=== PATIENT | female | born 1980 | race Caucasian/White ===

== ENCOUNTER 2017-10-30 20:36 | Emergency (ER) | payer MEDICARE, MEDICAID, SELFPAY ==
[2017-10-30 20:52] VITALS: BP 135/96; PULSE 109; RESP 16; TEMP 36.3; O2SAT 97; BMI 21.6
[2017-10-30] MEDS: HYDROMORPHONE 2 MG INJ 1 MG SUBCUT (21:52)
[2017-10-30 22:16] VITALS: BP 162/110; PULSE 92; RESP 17; O2SAT 98
[2017-10-30] MEDS: diazePAM 5 MG TABLET PO (22:58)
[2017-10-30 23:00] VITALS: BP 144/104; PULSE 87; RESP 14; O2SAT 98
[2017-10-30 23:06] VITALS: BP 144/101; PULSE 88; RESP 21; O2SAT 99
--- NOTE | 2017-10-31 01:41 | ED_ITS ---
HPI - Extremity Problem General Chief complaint: Extremity Problem,Nontraumatic Stated complaint: PAIN FROM GROIN TO RT KNEE Time Seen by Provider: 10/30/17 21:20 Source: patient Mode of arrival: wheelchair Limitations: no limitations History of Present Illness HPI Narrative: Patient is a 36-year-old female presenting with right leg pain from her hip down to her knee. She says it has been on going for the last number of months. She does have some urinary incontinence ongoing for the last few months as well. She is being followed closely by the [facility] because she is a heart transplant patient. 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 She also has cervical spine stenosis which she is aware of. She was recently at a extrusion press adjuster's appointment and was asking about the MRI results and for some explanation. He was unable to give her an answer to her satisfaction. Today she is having increased pain. She denies having any increased weakness or change in urination habits. She has not had any fever or chills. Her blood pressure has been fluctuating significantly standing worse is sitting she is being worked up with [facility]. Related Data Home Medications Medication Instructions Recorded Confirmed OXYCODONE/ACET 1 tab PO BIDP #0 12/04/11 fentanyl [Duragesic] #0 05/28/16 filgrastim [Neupogen] #0 05/28/16 Previous Rx's Medication Instructions Recorded diazepam [Valium] 5 mg PO Q8HP PRN #10 tab 05/29/16 diazepam [Valium] 5 mg PO Q12HR PRN #10 tab 10/30/17 Allergies Allergy/AdvReac Type Severity Reaction Status Date / Time adhesive tape [ADHESIVE TAPE] Allergy Unknown Verified 10/30/17 21:21 aloe [ALOE] Allergy Unknown Verified 10/30/17 21:21 lisinopril [LISINOPRIL] AdvReac Mild dry cough Verified 10/30/17 21:21 ibuprofen AdvReac Verified 10/30/17 21:21 Review of Systems Review of Systems All systems reviewed & are unremarkable except as noted in HPI and below Constitutional Denies chills, Denies fever(s), Denies lethargy and Denies weakness Cardiovascular Reports as per HPI, Denies dyspnea and Denies dyspnea on exertion Respiratory Denies cough, Denies dyspnea, Denies dyspnea on exertion and Denies wheezing Gastrointestinal Gastrointestinal: Denies abdominal pain, Denies change in bowel habits, Denies diarrhea, Denies nausea and Denies vomiting Musculoskeletal Reports as per HPI Integumentary/Breasts Denies pruritus, Denies erythema, Denies rash and Denies wounds Neurologic Reports as per HPI and Denies weakness Allergic/Immunologic Denies wheezing PFSH Medical History Cardiomyopathy (Acute) Heart transplant recipient (Acute) Surgical History History of third molar tooth extraction Status post laparoscopic supracervical hysterectomy (11/30/08) Status post tonsillectomy and adenoidectomy Social History Smoking Status: Current some day smoker Exam Initial Vital Signs Initial Vital Signs: Vital Signs Temperature 97.4 F L 10/30/17 20:52 Pulse Rate 109 H 10/30/17 20:52 Respiratory Rate 16 10/30/17 20:52 Blood Pressure 135/96 H 10/30/17 20:52 Pulse Oximetry 97 10/30/17 20:52 GENERAL: Chronically ill female awake and alert HEENT: Head atraumatic,EOMI, pupils reactive, face symmetric CARDIOVASCULAR: Regular rate and rhythm without murmurs, rubs or gallops. Scar noted RESPIRATORY: Breath sounds equal bilaterally, no wheezes rales or rhonchi. ABDOMEN: Soft, nontender. Normoactive bowel sounds all 4 quadrants. No guarding or rebound. BACK: No vertebral tenderness no step-off mild right lumbar pain EXTREMITIES: Normal range of motion, no clubbing or edema. Neurovascularly intact right leg may be slightly weaker than the left but does not drift to the gurney she does have pain with movement. Distal pedal pulse intact NEUROLOGICAL: Alert and oriented x4.Normal gait and speech. Cranial nerves II through XII grossly intact. SKIN: Warm, dry, no laceration, no petechiae, no rashes or lesions. Recent skin biopsy sites appear to be healing and not infected Course Orders Ordered: Discontinued Medications Diazepam (Valium) 5 mg PO NOW ONE Stop: 10/30/17 22:48 Last Admin: 10/30/17 22:58 Dose: 5 mg Hydromorphone HCl (Dilaudid) 1 mg SUBCUT NOW ONE Stop: 10/30/17 21:42 Last Admin: 10/30/17 21:52 Dose: 1 mg Vital Signs - 8 hr 10/30/17 20:52 10/30/17 22:16 10/30/17 23:00 Temperature 97.4 F L Pulse Rate 109 H 92 H 87 Respiratory Rate 16 17 14 Blood Pressure 135/96 H Blood Pressure [Left Arm] 162/110 H 144/104 H Pulse Oximetry 97 98 98 10/30/17 23:06 Temperature Pulse Rate 88 Respiratory Rate 21 Blood Pressure 144/101 H Blood Pressure [Left Arm] Pulse Oximetry 99 MDM - Extremity (Nontraumatic) Medical Records Attestation: I reviewed the patient's medical records. MDM Narrative Medical decision making narrative: Patient has no new symptoms. She has had some urinary incontinence ongoing for a number of months she recently had an MRI which does not show any spinal cord impingement she does have an L5 nerve root impingement I think causing her right leg pain. This all seems to be chronic and ongoing. Dilaudid did seem to help. Recommended follow-up with primary physician and/or [facility]. Discharge Plan Departure Patient Disposition: Home Clinical Impression: Neuropathic pain of right lower extremity Discharge Date/Time: 10/30/17 23:16 Interventions: ED Discharge Assessment Last Done: 10/30/17 23:06 Instructions: DI for Peripheral Neuropathy Activity Restrictions/Additional Instructions: *You have been diagnosed with neuropathy of right leg *What to do: Pain is likely from the L5 nerve. Recommend physical therapy. *Continue to take medications as directed Valium every 12 hr if needed for muscle spasm *Follow up with your primary care provider in 2-3 days *Return to ER if you should have weakness, increased urinary incontinence, or any new, worsening or concerning symptoms CONTROLLED SUBSTANCE DISCHARGE (Narcotoic/benzodiazepine/Flexeril/Phenergan) 1. You have been prescribed narcotic medications, it does have acetaminophen/ Tylenol/paracetamol in it so do not take extra Tylenol or Tylenol containing products 2. Please understand that we cannot provide further refills of narcotics, benzodiazepines or controlled substances through the ED and her pain management will need to be through your provider. 3. While on these medications you cannot drive or operate heavy machinery. 4. You cannot sign legal documents or perform any duties such as this. 5. As long as you're taking opiate pain medications he should also be taking a stool softener such as Colace, Dulcolax, MiraLAX or prune juice, to help avoid constipation. Prescriptions: New diazepam [Valium] 5 mg tablet 5 mg PO Q12HR PRN (Reason: muscle spasm) Qty: 10 RF: 0 No Action OXYCODONE/ACET 1 tab PO BIDP Qty: 0 RF: 0 fentanyl [Duragesic] 75 MCG/HR patch 72 hour Qty: 0 RF: 0 filgrastim [Neupogen] 300 MCG/0.5 ML syringe Qty: 0 RF: 0 diazepam [Valium] 5 MG tablet 5 mg PO Q8HP PRNQty: 10 RF: 0 Referrals: Dino Duval MD [Primary Care Provider] -
== END 2017-10-30 23:16 | disposition home or self-care (01) ==
PROVIDERS: Emergency Provider Emergency Medicine; Family Provider Family Medicine; PCP Family Medicine
DX: G57.91 Unspecified mononeuropathy of right lower limb (principal)
CPT/HCPCS: 99282; 99283; J1170

== ENCOUNTER 2017-11-05 13:31 | Emergency (ER) | payer MEDICARE, MEDICAID, SELFPAY ==
[2017-11-05 13:40] VITALS: BP 124/96; PULSE 104; RESP 25; TEMP 36.3; O2SAT 100
[2017-11-05 13:48] VITALS: BP 146/94; PULSE 104; RESP 25; TEMP 36.3; O2SAT 100
--- NOTE | 2017-11-05 13:57 | ED.GENADULT ---
HPI - General Adult General Chief complaint: Extremity Problem,Nontraumatic Stated complaint: Lf shoulder pain/Rt leg pain Time Seen by Provider: 11/05/17 13:36 Source: patient Mode of arrival: ambulatory Limitations: no limitations History of Present Illness HPI narrative: Patient is a 36-year-old female with a significant medical history. She has had a cardiac transplant. Patient is here today for evaluation of left arm and right leg pain. She was seen here in the emergency department a couple days ago for this. She has had an MRI of her lower back which does show degenerative disc disease. She states she has talk with her neurologist about this. She has had studies done recently to evaluate for nerve conduction. She is currently on a fentanyl patch and Percocet. She comes in today because she has had problems with walking at home secondary to the pain. Related Data Home Medications Medication Instructions Recorded Confirmed droxidopa [Northera] 2 cap PO TID 11/05/17 11/05/17 fentanyl 1 patch TOPICAL Q72H 11/05/17 11/05/17 fludrocortisone 2 tab PO DAILY 11/05/17 11/05/17 magnesium oxide-Mg AA chelate 2 tab PO BID 11/05/17 11/05/17 [[id number]] midodrine 2 tab PO TID 11/05/17 11/05/17 omeprazole 1 cap PO DAILY 11/05/17 11/05/17 oxycodone-acetaminophen 1 - 2 tab PO Q4-6H PRN 11/05/17 11/05/17 potassium chloride 1 tab PO DAILY 11/05/17 11/05/17 pravastatin 1 tab PO QPM 11/05/17 11/05/17 sirolimus 3 tab PO DAILY 11/05/17 11/05/17 tacrolimus 2 cap PO Q12H 11/05/17 11/05/17 venlafaxine 3 cap PO DAILY 11/05/17 11/05/17 Previous Rx's Medication Instructions Recorded diazepam [Valium] 5 mg PO Q8HP PRN #10 tab 05/29/16 Allergies Allergy/AdvReac Type Severity Reaction Status Date / Time adhesive tape [ADHESIVE TAPE] Allergy Unknown Verified 10/30/17 21:21 aloe [ALOE] Allergy Unknown Verified 10/30/17 21:21 lisinopril [LISINOPRIL] AdvReac Mild dry cough Verified 10/30/17 21:21 ibuprofen AdvReac Verified 10/30/17 21:21 Review of Systems Constitutional Reports fatigue, Denies fever(s) and Denies headache(s) ENT Ears, Nose, Mouth, and Throat: Denies dizziness and Denies headache(s) Cardiovascular Denies chest pain and Denies dyspnea Respiratory Denies dyspnea Gastrointestinal Gastrointestinal: Denies abdominal pain Genitourinary Denies dysuria Musculoskeletal Reports abnormal gait Comments: Left shoulder right leg pain Integumentary/Breasts Denies lesions and Denies rash Neurologic Reports abnormal gait, Denies dizziness and Denies headache(s) Endocrine Reports fatigue [facility] Medical History Cardiomyopathy (Acute) Heart transplant recipient (Acute) Surgical History History of third molar tooth extraction Status post laparoscopic supracervical hysterectomy (11/30/08) Status post tonsillectomy and adenoidectomy Social History Smoking Status: Current some day smoker Exam Initial Vital Signs Initial Vital Signs: Vital Signs Temperature 97.4 F L 11/05/17 13:40 Pulse Rate 104 H 11/05/17 13:40 Respiratory Rate 25 H 11/05/17 13:40 Blood Pressure 124/96 H 11/05/17 13:40 Pulse Oximetry 100 11/05/17 13:40 Const General: comfortable and No acute distress Orientation: alert, awake and oriented x3 HENMT Head: normal to inspection and normocephalic Resp Effort & Inspection: normal respiratory effort Cardio Rate: regular rate Rhythm: regular rhythm GI Inspection: non-distended Palpation: soft and No tender Skin Lesions: no lesions Rashes: no rashes Neuro General: alert, awake and oriented x3 Extrem Other: Limited range of motion of the right hip secondary to pain. She describes tenderness to palpation along the anterior portion of her right thigh. Patient also with limited range of motion of her left shoulder. With tenderness palpation throughout the left shoulder. No gross deformities. Psych Appearance: grossly normal and well kempt Course Orders Ordered: Discontinued Medications Fentanyl (Duragesic) 25 mcg TOP NOW ONE Stop: 11/05/17 14:20 Last Admin: 11/05/17 14:40 Dose: 25 mcg Oxycodone/Acetaminophen (Percocet 5/325) 2 tab PO NOW ONE Stop: 11/05/17 14:20 Last Admin: 11/05/17 14:40 Dose: 2 tab Vital Signs - 8 hr 11/05/17 13:40 11/05/17 13:48 11/05/17 14:43 Temperature 97.4 F L 97.4 F L Pulse Rate 104 H 104 H Pulse Rate [Bilateral] 81 Respiratory Rate 25 H 25 H Blood Pressure 146/94 H Blood Pressure [Left Arm] 124/96 H Pulse Oximetry 100 100 11/05/17 15:04 Temperature Pulse Rate 95 H Pulse Rate [Bilateral] Respiratory Rate 18 Blood Pressure Blood Pressure [Left Arm] 147/99 H Pulse Oximetry 100 Medical Decision Making MDM Narrative Medical decision making narrative: I reviewed the patient's past medical history. She does have an appointment with her primary doctor later this afternoon. I was able to talk with her primary doctor regarding her symptoms. Had a long discussion with the primary doctor regarding them.. We did feel like further workup here in the emergency department is not warranted. I do not feel like this is a fracture, cauda equina, septic joint or other emergent/surgical issue. Will hold on any radiologic studies for now. I did discuss this with the patient. We did discuss increasing her pain medication. She has been on 75 mcg of fentanyl for some time now. We will increase this to 100 mcg of fentanyl. She does have Percocet at home. I did inform her that she needs to talk with her primary care doctor at this appointment this afternoon about further pain management versus for home physical therapy versus home health. The patient expressed understanding and agreement this. She also expressed agreement not to do any further testing here in the emergency department. She was given return precautions. She expressed agreement with plan. Discharge Plan Departure Patient Disposition: Home Clinical Impression: Leg pain, right, Left shoulder pain Discharge Date/Time: 11/05/17 15:22 Interventions: ED Discharge Assessment Last Done: 11/05/17 15:06 Activity Restrictions/Additional Instructions: I recommend that you keep your appointment with your primary doctor that you have later today. You do need to discuss chronic pain management and also discussed the indications for home physical therapy or other home health needs. You can return to the emergency department for any new symptoms. Prescriptions: No Action diazepam [Valium] 5 MG tablet 5 mg PO Q8HP PRNQty: 10 RF: 0 venlafaxine 75 mg capsule,extended release 24hr 3 cap PO DAILY RF: 0 midodrine 5 mg tablet 2 tab PO TID RF: 0 potassium chloride 20 mEq tablet,ER particles/crystals 1 tab PO DAILY RF: 0 oxycodone-acetaminophen 10-325 mg tablet 1 - 2 tab PO Q4-6H PRN (Reason: pain) RF: 0 omeprazole 20 mg capsule,delayed release(DR/EC) 1 cap PO DAILY RF: 0 pravastatin 20 mg tablet 1 tab PO QPM RF: 0 fentanyl 75 mcg/hr patch 72 hour 1 patch Topical Q72H RF: 0 fludrocortisone 0.1 mg tablet 2 tab PO DAILY RF: 0 tacrolimus 1 mg capsule 2 cap PO Q12H RF: 0 magnesium oxide-Mg AA chelate [[id number]-[id number]] 133 mg Tablet 2 tab PO BID RF: 0 sirolimus 0.5 mg tablet 3 tab PO DAILY RF: 0 droxidopa [Northera] 300 mg capsule 2 cap PO TID RF: 0
[2017-11-05] MEDS: OXYCODONE/ACETAMINOPHEN 5/325 TABLET 2 TAB PO (14:40)
[2017-11-05] MEDS: fentaNYL 25 MCG/PATCH TOP (14:40)
[2017-11-05 14:43] VITALS: PULSE 81
[2017-11-05 15:04] VITALS: BP 147/99; PULSE 95; RESP 18; O2SAT 100
== END 2017-11-05 15:22 | disposition home or self-care (01) ==
LOC: ED 14:55
PROVIDERS: Emergency Provider Emergency Medicine; Family Provider Family Medicine; PCP Family Medicine
DX: M25.512 Pain in left shoulder (principal); M79.604 Pain in right leg
CPT/HCPCS: 99282; 99283

== ENCOUNTER 2017-12-11 18:10 | Emergency (ER) | payer MEDICARE, MEDICAID, SELFPAY ==
[2017-12-11 18:15] VITALS: BP 138/94; PULSE 101; RESP 15; TEMP 36.4; O2SAT 100; BMI 21.6
--- NOTE | 2017-12-11 19:15 | DI.RAD.S_ITS ---
PROCEDURE: XR SHOULDER LT MIN 2V INDICATIONS: fall pain TECHNIQUE: 3 views of the shoulder were acquired. COMPARISON: None. FINDINGS: Bones: No fractures or dislocations. No suspicious bony lesions. Visualized ribs appear intact. Moderate acromioclavicular narrowing. Soft tissues: No suspicious soft tissue calcifications. IMPRESSION: No visualized acute fracture or dislocation. However, if clinical concern and/or pain persist, short interval imaging followup in 7-10 days is recommended, as occult injury cannot be definitively excluded. Dictated by: Pita Beverly M.D. on 12/11/2017 at 20:54 Approved by: Pita Beverly M.D. on 12/11/2017 at 20:54
--- NOTE | 2017-12-11 19:15 | DI.CT.S_ITS ---
PROCEDURE: CT HEAD/BRAIN WO CON INDICATIONS: fall head injury nausea persistent TECHNIQUE: Noncontrast 4.5 mm thick angled axial sections acquired from the foramen magnum to the vertex, with coronal and sagittal reformats. For radiation dose reduction, the following was used: automated exposure control, adjustment of mA and/or kV according to patient size. COMPARISON: [facility], CT, HEAD WITHOUT CONTRAST, 05/26/2016, 19:25. [facility], CT, HEAD WITHOUT CONTRAST, 06/04/2015, 15:22. FINDINGS: Image quality: Excellent. CSF spaces: Basal cisterns are patent. No extra-axial fluid collections. Ventricles are normal in size and shape. Brain: No midline shift. No intracranial masses or hemorrhage. Snu-white matter interface is normal. Skull and face: Calvarium and visualized facial bones are intact, without suspicious lesions. Sinuses: Visualized sinuses and mastoids are clear. IMPRESSION: 1. No acute intracranial process. Dictated by: Pita Beverly M.D. on 12/11/2017 at 20:50 Approved by: Pita Beverly M.D. on 12/11/2017 at 20:51
--- NOTE | 2017-12-11 19:23 | ED_ITS ---
HPI - Fall General Chief Complaint: Fall Stated Complaint: leg pain low blood pressure fell last night Time Seen by Provider: 12/11/17 18:39 Source: patient Mode of arrival: wheelchair Limitations: no limitations History of Present Illness HPI Narrative: Patient is a 37-year-old female well known to myself and this facility presenting after a ground level fall last evening. She has spinal stenosis her legs give out on her often. She says last night they gave out on her. She did not have any warning which was abnormal. She did hit her head she did not lose consciousness as she has been nauseated all day she denies any headache. She has some left shoulder pain and decreased range of motion but no numbness or tingling. She has decreased sensation in her lower legs which remains unchanged. MD complaint: fall Related Data Home Medications Medication Instructions Recorded Confirmed droxidopa [Northera] 2 cap PO TID 11/05/17 11/05/17 fentanyl 1 patch TOPICAL Q72H 11/05/17 11/05/17 fludrocortisone 2 tab PO DAILY 11/05/17 11/05/17 magnesium oxide-Mg AA chelate 2 tab PO BID 11/05/17 11/05/17 [[id number]] midodrine 2 tab PO TID 11/05/17 11/05/17 omeprazole 1 cap PO DAILY 11/05/17 11/05/17 oxycodone-acetaminophen 1 - 2 tab PO Q4-6H PRN 11/05/17 11/05/17 potassium chloride 1 tab PO DAILY 11/05/17 11/05/17 pravastatin 1 tab PO QPM 11/05/17 11/05/17 sirolimus 3 tab PO DAILY 11/05/17 11/05/17 tacrolimus 2 cap PO Q12H 11/05/17 11/05/17 venlafaxine 3 cap PO DAILY 11/05/17 11/05/17 Previous Rx's Medication Instructions Recorded diazepam [Valium] 5 mg PO Q8HP PRN #10 tab 05/29/16 Allergies Allergy/AdvReac Type Severity Reaction Status Date / Time adhesive tape [ADHESIVE TAPE] Allergy Unknown Verified 12/11/17 18:15 aloe [ALOE] Allergy Unknown Verified 12/11/17 18:15 mycophenolate mofetil Allergy Verified 12/11/17 18:15 lisinopril [LISINOPRIL] AdvReac Mild dry cough Verified 12/11/17 18:15 ibuprofen AdvReac Verified 12/11/17 18:15 Review of Systems Review of Systems All systems reviewed & are unremarkable except as noted in HPI and below Constitutional Denies chills, Denies fever(s), Reports frequent falls, Denies lethargy and Denies weakness Cardiovascular Denies chest pain, Denies irregular heart rhythm, Denies lightheadedness, Denies palpitations, Denies dyspnea, Denies dyspnea on exertion and Denies orthopnea Respiratory Denies cough, Denies dyspnea, Denies dyspnea on exertion and Denies wheezing Gastrointestinal Gastrointestinal: Denies abdominal pain, Denies change in bowel habits, Denies diarrhea, Denies nausea and Denies vomiting Musculoskeletal Reports system reviewed and no additional complaints, except as docu Integumentary/Breasts Denies pruritus, Denies erythema, Denies rash and Denies wounds Neurologic Reports as per HPI, Reports frequent falls and Denies weakness Endocrine Denies palpitations Allergic/Immunologic Denies wheezing Exam Initial Vital Signs Initial Vital Signs: Vital Signs Temperature 97.5 F L 12/11/17 18:15 Pulse Rate 101 H 12/11/17 18:15 Respiratory Rate 15 12/11/17 18:15 Blood Pressure 138/94 H 12/11/17 18:15 Pulse Oximetry 100 12/11/17 18:15 GENERAL: Chronically ill female acute distress HEENT: Head atraumatic,EOMI, pupils reactive, face symmetric CARDIOVASCULAR: Regular rate and rhythm without murmurs, rubs or gallops. RESPIRATORY: Breath sounds equal bilaterally, no wheezes rales or rhonchi. ABDOMEN: Soft, nontender. Normoactive bowel sounds all 4 quadrants. No guarding or rebound. RECTAL: Hemoccult-positive, no hemorrhoids, nontender : No CVA tenderness EXTREMITIES: Normal range of motion, no clubbing or edema. Neurovascularly intact NEUROLOGICAL: Alert and oriented x4.Normal gait and speech. Lower extremities are slightly weak but she is able to move them SKIN: Warm, dry, no laceration, no petechiae, no rashes or lesions. [facility] Social History Smoking Status: Current some day smoker Course Orders Ordered: ED Orders 11/01/18 19:15 CT head/brain wo con Stat XR shoulder LT min 2V Stat 12/11/17 19:48 Basic Metabolic Panel Stat Complete Blood Count AUTO DIFF Stat Discontinued Medications Sodium Chloride (Normal Saline 0.9%) 1,000 mls @ 1,000 mls/hr IV BOLUS ONE Stop: 12/11/17 21:11 Last Infusion: 12/11/17 22:49 Dose: 0 mls/hr Admin: 12/11/17 20:51 Dose: 1,000 mls/hr Vital Signs - 8 hr 12/11/17 18:15 12/11/17 21:40 12/11/17 22:22 Temperature 97.5 F L Pulse Rate 101 H 86 101 H Respiratory Rate 15 12 Blood Pressure 138/94 H Blood Pressure [Left Arm] 183/90 H 142/99 H Pulse Oximetry 100 100 100 12/11/17 22:49 Temperature 98.4 F Pulse Rate 80 Respiratory Rate 16 Blood Pressure 146/90 H Blood Pressure [Left Arm] Pulse Oximetry 98 MDM - Fall Lab Data Attestation: I reviewed the patient's lab results. Result diagrams: 12/11/17 19:48 12/11/17 19:48 Lab Results 12/11/17 12/11/17 Range/Units 19:48 19:48 WBC 6.5 (4.5-11.0) X10^3/uL RBC 4.44 (4.0-5.2) X10^6/uL Hgb 13.7 (12.0-16.0) g/dL Hct 40.0 (36-46) % MCV 90.1 (80-100) fL MCH 30.9 (26-34) PG MCHC 34.3 (30-36) % RDW 12.2 (11.6-14.8) % Plt Count 183 (150-400) X10^3/uL Neut % (Auto) 35.9 L (50-75) % Lymph % (Auto) 52.9 H (25-40) % [place] % (Auto) 8.3 (3-14) % Eos % (Auto) 1.8 L (2-4) % Baso % (Auto) 1.1 (0-2) % Neut # (Auto) 2300 L (9689-5081) /uL Sodium 142 (137-145) mmol/L Potassium 4.7 (3.4-5.1) mmol/L Chloride 104 (98-107) mmol/L Carbon Dioxide 27 (22-32) mmol/L BUN 42 H (7-17) mg/dL Creatinine 2.10 H (0.52-1.04) mg/dL Estimated GFR 26.2 L (>60) mL/min BUN/Creatinine Ratio 20.0 (6-22) Glucose 149 H (70-100) mg/dL Calcium 9.8 (8.4-10.2) mg/dL Imaging Data CT scan - head: Radiologist's impression: PROCEDURE: CT HEAD/BRAIN WO CON INDICATIONS: fall head injury nausea persistent TECHNIQUE: Noncontrast 4.5 mm thick angled axial sections acquired from the foramen magnum to the vertex, with coronal and sagittal reformats. For radiation dose reduction, the following was used: automated exposure control, adjustment of mA and/or kV according to patient size. COMPARISON: [facility], CT, HEAD WITHOUT CONTRAST, 05/26/2016, 19:25. [facility], CT, HEAD WITHOUT CONTRAST, 06/04/2015, 15:22. FINDINGS: Image quality: Excellent. CSF spaces: Basal cisterns are patent. No extra-axial fluid collections. Ventricles are normal in size and shape. Brain: No midline shift. No intracranial masses or hemorrhage. Sun-white matter interface is normal. Skull and face: Calvarium and visualized facial bones are intact, without suspicious lesions. Sinuses: Visualized sinuses and mastoids are clear. IMPRESSION: 1. No acute intracranial process. Dictated by: Pita Beverly M.D. on 12/11/2017 at 20:50 left shoulder: Radiologist's impression: PROCEDURE: XR SHOULDER LT MIN 2V INDICATIONS: fall pain TECHNIQUE: 3 views of the shoulder were acquired. COMPARISON: None. FINDINGS: Bones: No fractures or dislocations. No suspicious bony lesions. Visualized ribs appear intact. Moderate acromioclavicular narrowing. Soft tissues: No suspicious soft tissue calcifications. IMPRESSION: No visualized acute fracture or dislocation. However, if clinical concern and/or pain persist, short interval imaging followup in 7-10 days is recommended , as occult injury cannot be definitively excluded. Dictated by: Pita Beverly M.D. on 12/11/2017 at 20:54 MDM Narrative Medical decision making narrative: Creatinine is noted to be slightly elevated from previous labs. I spoke with Dr. Saul, at [facility] part of cardiac transplant team has been updated she has read her chart. At this time does not need to be transferred down. Recommend that she call office tomorrow morning as for follow-up. It looks as though there was a biopsy done today day the results are not yet back. She is able to drink fluids. He says that her kidney function fluctuates. I discussed with patient all transplant recommendations follow up tomorrow. She understands and agrees. Discharge Plan Departure Patient Disposition: Home Clinical Impression: Acute dehydration Discharge Date/Time: 12/11/17 22:49 Interventions: ED Discharge Assessment Last Done: 12/11/17 22:49 Instructions: DI for Dehydration -- Adult Activity Restrictions/Additional Instructions: *You have been diagnosed with dehydration *What to do: Head CT and shoulder x-ray within normal limits. Blood work did show slightly increased creatinine suggesting dehydration *Continue to take medications as directed *Follow up with your primary care provider in 2-3 days, follow-up with your doctors including neurologists and transplant team, call tomorrow 1st thing *Return to ER if you should have inability to walk, worsening weakness or any new, worsening or concerning symptoms Prescriptions: No Action diazepam [Valium] 5 MG tablet 5 mg PO Q8HP PRNQty: 10 RF: 0 venlafaxine 75 mg capsule,extended release 24hr 3 cap PO DAILY RF: 0 midodrine 5 mg tablet 2 tab PO TID RF: 0 potassium chloride 20 mEq tablet,ER particles/crystals 1 tab PO DAILY RF: 0 oxycodone-acetaminophen 10-325 mg tablet 1 - 2 tab PO Q4-6H PRN (Reason: pain) RF: 0 omeprazole 20 mg capsule,delayed release(DR/EC) 1 cap PO DAILY RF: 0 pravastatin 20 mg tablet 1 tab PO QPM RF: 0 fentanyl 75 mcg/hr patch 72 hour 1 patch Topical Q72H RF: 0 fludrocortisone 0.1 mg tablet 2 tab PO DAILY RF: 0 tacrolimus 1 mg capsule 2 cap PO Q12H RF: 0 magnesium oxide-Mg AA chelate [So-Stxv-Blljfzw] 133 mg Tablet 2 tab PO BID RF: 0 sirolimus 0.5 mg tablet 3 tab PO DAILY RF: 0 droxidopa [Northera] 300 mg capsule 2 cap PO TID RF: 0
[2017-12-11 19:54] LABS: Add Manual Diff / Slide Review NO; Basophils Percent Auto 1.1 % (0-2); Eosinophils Percent Auto 1.8 % (2-4); Hemoglobin 13.7 g/dL (12.0-16.0); Lymphocytes Percent Auto 52.9 % (25-40); Mean Corpuscular HGB Conc 34.3 % (30-36); Mean Corpuscular Hemoglobin 30.9 PG (26-34); Mean Corpuscular Volume 90.1 fL (80-100); Monocytes Percent Auto 8.3 % (3-14); Neutrophils Absolute Auto 2300 /uL (3000-5900); Neutrophils Percent Auto 35.9 % (50-75); Platelet Count 183 X10^3/uL (150-400); Red Blood Cell Count 4.44 X10^6/uL (4.0-5.2); Red Cell Distribution Width 12.2 % (11.6-14.8); White Blood Cell Count 6.5 X10^3/uL (4.5-11.0)
[2017-12-11 20:06] LABS: Blood Urea Nitrogen 42 mg/dL (7-17); Calcium 9.8 mg/dL (8.4-10.2); Carbon Dioxide 27 mmol/L (22-32); Chloride 104 mmol/L (98-107); Estimated Glomerular Filt Rate 26.2 mL/min (>60); Glucose 149 mg/dL (70-100); HEMOLYSIS < 15 (0-50); Potassium 4.7 mmol/L (3.4-5.1); Sodium 142 mmol/L (137-145)
--- NOTE | 2017-12-11 20:47 | PC.NURSE ---
Went to place IV, this RN was unable to find appropriate vein for placement. steeping press tender to attempt IV placement.
[2017-12-11] MEDS: SODIUM CHLORIDE 0.9% 1,000 ML 1000 ML IV (20:51)
[2017-12-11 21:40] VITALS: BP 183/90; PULSE 86; RESP 12; O2SAT 100
[2017-12-11 22:22] VITALS: BP 142/99; PULSE 101; O2SAT 100
[2017-12-11 22:49] VITALS: BP 146/90; PULSE 80; RESP 16; TEMP 36.9; O2SAT 98
== END 2017-12-11 22:49 | disposition home or self-care (01) ==
PROVIDERS: Emergency Provider Emergency Medicine; Family Provider Family Medicine; PCP Family Medicine
DX: E86.0 Dehydration (principal); W18.30XA Fall on same level, unspecified, initial encounter
CPT/HCPCS: 36415; 70450; 73030; 80048; 85025; 96360; 96361; 99283; 99284

== ENCOUNTER → 2018-03-27 16:09 | Outpatient (REF) | payer MEDICARE, MEDICAID, SELFPAY | LOC: LAB 16:09 | PROVIDERS: Family Provider Family Medicine; PCP Family Medicine; Visit Provider Family Medicine | DX: J06.9 Acute upper respiratory infection, unspecified (principal) | CPT/HCPCS: 87070; 87077; 87186 ==

== ENCOUNTER → 2020-06-19 14:54 | Outpatient (CLI) | payer MEDICARE, MEDICAID, SELFPAY ==
[2020-06-20 12:53] LABS: Interpretation Negative (Negative)
== END ==
PROVIDERS: PCP Family Medicine; Referring Provider Family Medicine; Visit Provider Family Medicine
DX: Z79.899 Other long term (current) drug therapy (principal); R63.4 Abnormal weight loss; R11.2 Nausea with vomiting, unspecified
CPT/HCPCS: 80307; 83013; G0481

== ENCOUNTER → 2020-11-17 11:52 | Outpatient (CLI) | payer MEDICARE, MEDICAID, SELFPAY ==
[2020-11-17 12:32] LABS: UR Morphine/Opiate cutoff 300 Negative (Negative); Ur Creatinine Normal (Normal); Ur Specific Gravity Normal (Normal); Urine Amphetamines Negative (Negative); Urine Barbiturates Negative (Negative); Urine Benzodiazepines Positive (Negative); Urine Cocaine Negative (Negative); Urine MDMA Negative (Negative); Urine Methadone Negative (Negative); Urine Methamphetamines Negative (Negative); Urine Oxycodone Negative (Negative); Urine Phencyclidine Negative (Negative); Urine Tetrahydrocannabinol Negative (Negative); Urine Tricyclic Antidepressant Negative (Negative); Urine pH Normal (Normal)
== END ==
PROVIDERS: PCP Family Medicine; Referring Provider Family Medicine; Visit Provider Family Medicine
DX: Z79.899 Other long term (current) drug therapy (principal); K31.84 Gastroparesis; F11.90 Opioid use, unspecified, uncomplicated; F33.1 Major depressive disorder, recurrent, moderate
CPT/HCPCS: 80305

== ENCOUNTER → 2021-02-05 12:48 | Outpatient (CLI) | payer MEDICARE, MEDICAID, SELFPAY ==
[2021-02-13 13:55] LABS: Miscellaneous to Univ of WA SEE SEPARATE REPORTS
== END ==
PROVIDERS: PCP Family Medicine; Referring Provider Family Medicine; Visit Provider Family Medicine
DX: F11.90 Opioid use, unspecified, uncomplicated (principal); Z79.899 Other long term (current) drug therapy
CPT/HCPCS: 36415; 80307; G0481

== ENCOUNTER → 2021-12-18 11:30 | Outpatient (CLI) | payer MEDICARE, MEDICAID, SELFPAY ==
--- NOTE | 2021-12-18 | DI.US.S_ITS ---
PROCEDURE: US RETROPERITONEAL COMP INDICATIONS: Chronic kidney disease, stage 3b TECHNIQUE: Real-time scanning was performed of the kidneys and bladder, with image documentation. COMPARISON: None. FINDINGS: Kidneys: Kidneys are normal in size. Right kidney measures 9.8 cm long; left kidney measures 9.2 cm long. Right renal cortical thickness is 1.0 cm; left renal cortical thickness is 1.2 cm. Renal cortical echotexture is normal. No hydronephrosis or nephrolithiasis. No suspicious solid mass lesions. Bladder: Pre-void bladder volume is 72 mL. Post-void residual is 3 mL. Pre-void images demonstrate no intraluminal masses or stones. On pre-void images, bilateral ureteral jets are noted with color Doppler interrogation. (Of note, ureteral jets may not be detectable in up to 25% of cases due to insufficient differences in specific gravity between ureteral and bladder urine). Miscellaneous: No free pelvic fluid. Complex right ovarian cyst measuring up to 5.0 cm. IMPRESSION: 1. Normal appearance the kidneys bilaterally. 2. Incidental finding of a complex right ovarian cyst. When clinically feasible, recommend formal pelvic ultrasound for further assessment. Dictated by: Alvarez Reinoso [facility] Interpreted: Severino Guevara MD on 12/18/2021 at 15:16 Transcribed by: ERICA on 12/18/2021 at 15:19 Approved by: Severino Guevara M.D. on 12/18/2021 at 17:30
== END ==
DX: N18.32 Chronic kidney disease, stage 3b (principal); N28.1 Cyst of kidney, acquired
CPT/HCPCS: 76770

== ENCOUNTER → 2021-12-31 11:16 | Outpatient (CLI) | payer MEDICARE, MEDICAID, SELFPAY ==
--- NOTE | 2021-12-31 | DI.MRI.S_ITS ---
PROCEDURE: MR LUMBAR SPINE WO CON INDICATIONS: Lumbago with sciatica, right side TECHNIQUE: Noncontrast sagittal T1 spin echo and T2 fast echo, sagittal STIR, and T2 fast spin echo through the lumbar spine. In cases with scoliosis, additional coronal T2 fast spin echo may be performed. COMPARISON: [facility], MR, L-SPINE WITHOUT CONTRAST, 08/02/2010, 11:22. FINDINGS: Image quality: Excellent. Alignment and Curvature: There is normal bony alignment. Bone Marrow: Edematous Modic type 1 endplate changes noted L3-4, new from the prior exam. Marrow signal is overall low and heterogenous. Spinal Cord: Conus medullaris terminates at the L1 level. Visualized cord demonstrates normal signal and size. Paraspinous Soft Tissues: No paravertebral masses. T12-L1: Normal appearance. L1-L2: Normal appearance. L2-L3: Disc space narrowing and circumferential disc bulge and hypertrophic facet joints results in mild central stenosis. Mild right and no left foraminal stenosis L3-L4: Disc space narrowing and asymmetric right disc bulge results in effacement of the right lateral recess and moderate central stenosis. Moderate right and mild left foraminal stenosis L4-L5: Disc space narrowing and circumferential disc bulge with hypertrophic facet joints results in mild central stenosis. Moderate bilateral foraminal stenosis. L5-S1: Disc space narrowing with circumferential disc bulge and hypertrophic facet joints IMPRESSION: 1. Multilevel degenerative disc disease and arthropathy results in varying degrees central and foraminal stenosis as above. At L 3 4, there is right lateral recess effacement and moderate central stenosis. 2. Generalized low signal heterogenous marrow could reflect red marrow conversion in anemia. Approved by: Karlos Mendez M.D. on 12/31/2021 at 14:25
== END ==
PROVIDERS: PCP Pediatrics; Referring Provider Pediatrics; Visit Provider Pediatrics
DX: M51.16 Intervertebral disc disorders with radiculopathy, lumbar region (principal); M51.17 Intervertebral disc disorders with radiculopathy, lumbosacral region; M47.26 Other spondylosis with radiculopathy, lumbar region; M47.27 Other spondylosis with radiculopathy, lumbosacral region; M48.061 Spinal stenosis, lumbar region without neurogenic claudication; G89.29 Other chronic pain
CPT/HCPCS: 72148

== ENCOUNTER → 2022-04-02 14:08 | Outpatient (CLI) | payer MEDICARE, MEDICAID, SELFPAY ==
--- NOTE | 2022-04-02 | DI.RAD.S_ITS ---
PROCEDURE: XR LUMBAR SPINE MIN 4V INDICATIONS: LOW BACK PAIN W. SCIATICA TECHNIQUE: 5 views of the lumbar spine acquired, including flexion and extension views. COMPARISON: None. FINDINGS: Bones: 5 nonrib-bearing vertebrae are present. There is trace, approximately 3 millimeters of L3-L4 and L4-L5 retrolisthesis. No vertebral body compression fractures. No suspicious bony lesions. Mild degenerative disc changes noted throughout the lumbar spine. Mild L3-L4, L4-L5 and L5-S1 facet hypertrophy. Soft tissues: Overlying bowel gas pattern is normal. No suspicious soft tissue calcifications. Flexion/extension: There is normal range of motion, with preserved vertebral body alignment. IMPRESSION: 1. Multilevel degenerative disc disease. 2. Multilevel facet arthropathy. 3. No fracture. No acute osseous lesion. If symptoms and/or clinical suspicion for pathology persists, evaluation with MRI should be considered for further assessment. Dictated by: Amie Saunders MD, PhD on 04/02/2022 at 15:04 Approved by: Amie Saunders MD, PhD on 04/02/2022 at 15:05
== END ==
PROVIDERS: PCP Pediatrics; Referring Provider Neurological Surgery; Visit Provider Neurological Surgery
DX: M51.16 Intervertebral disc disorders with radiculopathy, lumbar region (principal); M47.26 Other spondylosis with radiculopathy, lumbar region; M47.27 Other spondylosis with radiculopathy, lumbosacral region; G89.29 Other chronic pain
CPT/HCPCS: 72110